=== PATIENT | female | born 1995 | race Caucasian/White ===

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

== ENCOUNTER 2017-02-03 20:40 | Emergency (ER) | payer BC ==
[2017-02-03] MEDS ORDERED: Azithromycin 250 MG Tab PO ONE (22:55)
--- NOTE | 2017-02-03 22:59 | EDM.PDOC ---
ED HPI GENERAL MEDICAL PROBLEM - General Chief Complaint: General Stated Complaint: NECK IS SWOLLEN, [id number] Time Seen by Provider: 02/03/17 22:54 Source of Information: Reports: Patient, Family History Limitations: Reports: No Limitations - History of Present Illness INITIAL COMMENTS - FREE TEXT/NARRATIVE: felt sick Tuesday, to clinic Tuesday told was viral but to ER if worse, got worse tonight with fever right jaw swollen hurts to swallow. Treatments PATENTS EXAMINER: Reports: NSAIDS - Related Data Allergies Allergy/AdvReac Type Severity Reaction Status Date / Time Sulfa (Sulfonamide Allergy Rash Verified 02/03/17 20:56 Antibiotics) Home Meds: Home Meds Dextroamphetamine/Amphetamine [Adderall] 12.5 mg PO DAILY 12/25/15 [History] Sertraline HCl [Zoloft] 20 mg PO DAILY 12/25/15 [History] guanFACINE HCl [Guanfacine HCl] 2 mg PO DAILY 12/25/15 [History] Desogestrel-Ethinyl Estradiol [[place] 28 Day Tablet] 1 each PO DAILY [History] Ciprofloxacin HCl [Cipro] 500 mg PO BID 03/23/16 [History] Past Medical History - Past Health History Medical/Surgical History: Denies Medical/Surgical History Gastrointestinal History: Reports: Chronic Constipation Genitourinary History: Reports: UTI, Recurrent Other Genitourinary History: renal reflux Musculoskeletal History: Reports: Back Pain, Chronic Psychiatric History: Reports: ADHD, Anxiety, Depression Social & Family History - Family History Family Medical History: Noncontributory - Tobacco Use Smoking Status *Q: Never Smoker Second Hand Smoke Exposure: No - Caffeine Use Caffeine Use: Reports: None - Alcohol Use Days Per Week of Alcohol Use: 0 - Recreational Drug Use Recreational Drug Use: No ED ROS GENERAL - Review of Systems Review Of Systems: ROS reveals no pertinent complaints other than HPI. ED EXAM, GENERAL - Physical Exam Exam: See Below Exam Limited By: No Limitations General Appearance: Alert, WD/WN, Mild Distress, Other (discomfort) Ears: Hearing Grossly Normal Throat/Mouth: Normal Voice, No Airway Compromise, Other (tonsillar erythema right>, ) Head: Atraumatic Neck: Non-Tender, Full Range of Motion, Lymphadenopathy (L), Lymphadenopathy (R) , Other (right mandibular angle swollen, parotitis) Respiratory/Chest: No Respiratory Distress Cardiovascular: Regular Rate, Rhythm GI/Abdominal: Soft, Non-Tender Neurological: Alert, Oriented, Normal Cognition, Normal Gait, No Motor/Sensory Deficits Psychiatric: Flat Affect Skin Exam: Warm, Dry, Normal Color Lymphatic: Other (cervical) Course - Vital Signs Last Recorded V/S: Last Vital Signs Temp 36.7 C 02/03/17 20:46 Pulse 114 H 02/03/17 20:46 Resp 16 02/03/17 20:46 BP 122/68 02/03/17 20:46 Pulse Ox 100 02/03/17 20:46 - Orders/Labs/Meds Orders: Active Orders 24 hr Category Date Time Status CULTURE STREP A CONFIRMATION [RM] Stat Lab 02/03/17 20:54 Results MUMPS VIRUS AB, IGG [REF] Stat Lab 02/03/17 22:47 Ordered MUMPS VIRUS AB,IGM [REF] Stat Lab 02/03/17 22:47 Ordered STREP SCRN A RAPID W CULT CONF [RM] Stat Lab 02/03/17 20:54 Results Departure - Departure Time of Disposition: 22:58 Disposition: Home, Self-Care 01 Condition: Good Clinical Impression: Tonsillitis Mumps Qualifiers: Mumps complication type: without complication Qualified Code(s): B26.9 - Mumps without complication - Discharge Information Instructions: Mumps, Pediatric Additional Instructions: 1) avoid solid foods and scratchy foods 2) take tylenol or motrin for fever 3) follow up at clinic or recheck as needed rx given; [id number] - My Orders Last 24 Hours: My Active Orders 02/03/17 20:54 CULTURE STREP A CONFIRMATION [RM] Stat STREP SCRN A RAPID W CULT CONF [RM] Stat 02/03/17 22:47 MUMPS VIRUS AB, IGG [REF] Stat MUMPS VIRUS AB,IGM [REF] Stat - Assessment/Plan Last 24 Hours: My Active Orders 02/03/17 20:54 CULTURE STREP A CONFIRMATION [RM] Stat STREP SCRN A RAPID W CULT CONF [RM] Stat 02/03/17 22:47 MUMPS VIRUS AB, IGG [REF] Stat MUMPS VIRUS AB,IGM [REF] Stat
[2017-02-03 23:12] VITALS: BP 120/67
== END 2017-02-03 23:08 | disposition home or self-care (01) ==
LOC: DL.ED 20:40
DX: J03.90 Acute tonsillitis, unspecified (principal); B26.9 Mumps without complication; F41.9 Anxiety disorder, unspecified; F32.9 Major depressive disorder, single episode, unspecified; Z87.440 Personal history of urinary (tract) infections; Z79.899 Other long term (current) drug therapy; Z88.2 Allergy status to sulfonamides
CPT/HCPCS: 86735; 87081; 87430; 99283; A9270; 36415

== ENCOUNTER 2017-05-05 17:27 | Emergency (ER) | payer BC ==
[2017-05-05 17:41] VITALS: BP 116/71
[2017-05-05] MEDS ORDERED: Sodium Chloride 0.9% 1,000 ML IV ONE (17:45)
--- NOTE | 2017-05-05 17:52 | EDM.PDOC ---
ED HPI GENERAL MEDICAL PROBLEM - General Chief Complaint: Genitourinary Problem Stated Complaint: [id number] KIDNEY INFECTION Time Seen by Provider: 05/05/17 17:44 Source of Information: Reports: Patient History Limitations: Reports: No Limitations - History of Present Illness INITIAL COMMENTS - FREE TEXT/NARRATIVE: 21 yo white female brought in by Mom w/ c/o abdomen pain yesterday, low back pain w/ chills today. PMHx. Recurrent UTIs and Hx. Vesicoureteral reflux and has been evaluated by Urology in [facility]. Pt. denies fever. Onset Date: 05/04/17 Duration: Day(s):, Getting Worse Location: Reports: Abdomen, Back Quality: Reports: Ache Severity: Moderate Improves with: Reports: None Worsens with: Reports: None Context: Reports: Other (PMHx. Vesicoureteral Reflux) Associated Symptoms: Reports: No Other Symptoms Bilateral Flank Pain Score (Numeric/FACES): 7 - Related Data Allergies Allergy/AdvReac Type Severity Reaction Status Date / Time Sulfa (Sulfonamide Allergy Rash Verified 05/05/17 17:35 Antibiotics) Home Meds: Home Meds medroxyPROGESTERone Acetate [Depo-Provera] 150 mg IM ASDIRECTED 05/05/17 [ History] Past Medical History - Past Health History Medical/Surgical History: Denies Medical/Surgical History Gastrointestinal History: Reports: Chronic Constipation Genitourinary History: Reports: Pyelonephritis, UTI, Recurrent Other Genitourinary History: renal reflux Musculoskeletal History: Reports: Back Pain, Chronic Psychiatric History: Reports: ADHD, Anxiety, Depression - Infectious Disease History Infectious Disease History: Reports: None Social & Family History - Family History Family Medical History: Noncontributory - Tobacco Use Smoking Status *Q: Never Smoker Second Hand Smoke Exposure: No - Caffeine Use Caffeine Use: Reports: None - Alcohol Use Days Per Week of Alcohol Use: 0 - Recreational Drug Use Recreational Drug Use: No ED ROS GENERAL - Review of Systems Review Of Systems: See Below Constitutional: Reports: Chills HEENT: Reports: No Symptoms Respiratory: Reports: No Symptoms Cardiovascular: Reports: No Symptoms Endocrine: Reports: No Symptoms GI/Abdominal: Reports: Abdominal Pain (low abdomen) : Reports: Flank Pain (right more than left) Musculoskeletal: Reports: No Symptoms Skin: Reports: No Symptoms Neurological: Reports: No Symptoms Psychiatric: Reports: No Symptoms Hematologic/Lymphatic: Reports: No Symptoms Immunologic: Reports: No Symptoms ED EXAM, RENAL/ - Physical Exam Exam: See Below Exam Limited By: No Limitations General Appearance: Alert, WD/WN, No Apparent Distress Eye Exam: Bilateral Eye: EOMI, PERRL Ears: Normal External Exam Nose: Normal Inspection Throat/Mouth: Normal Inspection Head: Atraumatic Neck: Normal Inspection Respiratory/Chest: No Respiratory Distress Cardiovascular: Normal Peripheral Pulses, Regular Rate, Rhythm GI/Abdominal: Normal Bowel Sounds, Soft, Tender (suprapubic area) Back Exam: Normal Inspection, CVA Tenderness (R) Extremities: Normal Inspection, Normal Range of Motion Neurological: Alert, Oriented, CN II-XII Intact, Normal Cognition Psychiatric: Normal Affect, Normal Mood Skin Exam: Warm, Dry, Intact, Normal Color, No Rash Lymphatic: No Adenopathy Course - Vital Signs Last Recorded V/S: Last Vital Signs Temp 36.7 C 05/05/17 17:38 Pulse 142 H 05/05/17 17:38 Resp 16 05/05/17 17:38 BP 116/71 05/05/17 17:38 Pulse Ox 97 05/05/17 17:38 - Orders/Labs/Meds Orders: Active Orders 24 hr Category Date Time Status CULTURE URINE [RM] Stat Lab 05/05/17 17:33 Received Phenazopyridine [Urinary Pain Relief] Med 05/05/17 18:25 Once 95 mg PO ONETIME ONE Sodium Chloride 0.9% [Normal Saline] 1,000 ml Med 05/05/17 17:45 Active IV .BOLUS cefTRIAXone [Rocephin] 1 gm Med 05/05/17 18:12 Active Sodium Chloride 0.9% [Normal Saline] 50 ml IV ONETIME Medication Orders Sodium Chloride (Normal Saline) 1,000 mls @ 999 mls/hr IV .BOLUS ONE Stop: 05/05/17 18:45 Last Admin: 05/05/17 18:04 Dose: 999 mls/hr Ceftriaxone Sodium 1 gm/ (Sodium Chloride) 50 mls @ 100 mls/hr IV ONETIME ONE Stop: 05/05/17 18:41 Last Admin: 05/05/17 18:24 Dose: 100 mls/hr Phenazopyridine HCl (Urinary Pain Relief) 95 mg PO ONETIME ONE Stop: 05/05/17 18:26 Labs: Laboratory Tests 05/05/17 05/05/17 05/05/17 Range/Units 17:33 17:33 17:57 WBC 8.3 (5.0-10.0) 10^3/uL RBC 4.47 (4.2-5.4) 10^6/uL Hgb 13.4 (12.0-16.0) g/dL Hct 39.2 (37.0-47.0) % MCV 87.7 (80-100) fL MCH 30.0 (27.0-34.0) pg MCHC 34.2 (33.0-35.0) g/dL Plt Count 234 (150-450) 10^3/uL Neut % (Auto) 83.0 H (42.2-75.2) % Lymph % (Auto) 10.0 L (20.5-50.1) % [place] % (Auto) 6.7 (2-8) % Eos % (Auto) 0.2 L (1.0-3.0) % Baso % (Auto) 0.1 (0.0-1.0) % Sodium (135-145) mmol/L Potassium (3.6-5.0) mmol/L Chloride (101-111) mmol/L Carbon Dioxide (21.0-31.0) mmol/L Anion Gap BUN (7-18) mg/dL Creatinine (0.6-1.3) mg/dL Est Cr Clr Drug Dosing mL/min Estimated GFR (MDRD) BUN/Creatinine Ratio Glucose (74-105) mg/dL Calcium (8.4-10.2) mg/dl Total Bilirubin (0.2-1.0) mg/dL AST (10-42) IU/L ALT (10-60) IU/L Alkaline Phosphatase (42-121) IU/L Total Protein (6.7-8.2) g/dl Albumin (3.2-5.5) g/dl Globulin Albumin/Globulin Ratio Amylase (28-100) U/L Urine Color Yellow (YELLOW) Urine Appearance Slightly cloudy (CLEAR) Urine pH 6.0 (5.0-9.0) Ur Specific [place] 1.025 (1.005-1.030) Urine Protein 100 H (NEGATIVE) Urine Glucose (UA) Negative (NEGATIVE) Urine Ketones Trace H (NEGATIVE) Urine Occult Blood Trace-lysed H (NEGATIVE) Urine Nitrite Negative (NEGATIVE) Urine Bilirubin Small H (NEGATIVE) Urine Urobilinogen 0.2 (0.2-1.0) mg/dL Ur Leukocyte Esterase Small H (NEGATIVE) Urine RBC 5-10 H /HPF Urine WBC 50-75 H (0-5/HPF) /HPF Ur Epithelial Cells Many H /HPF Amorphous Sediment Few (0/HPF) /HPF Urine Bacteria Many H (0-FEW/HPF) /HPF Urine Mucus Few H /LPF Urine HCG, Qual Negative 05/05/17 05/05/17 Range/Units 17:57 17:57 WBC (5.0-10.0) 10^3/uL RBC (4.2-5.4) 10^6/uL Hgb (12.0-16.0) g/dL Hct (37.0-47.0) % MCV (80-100) fL MCH (27.0-34.0) pg MCHC (33.0-35.0) g/dL Plt Count (150-450) 10^3/uL Neut % (Auto) (42.2-75.2) % Lymph % (Auto) (20.5-50.1) % [place] % (Auto) (2-8) % Eos % (Auto) (1.0-3.0) % Baso % (Auto) (0.0-1.0) % Sodium 136 (135-145) mmol/L Potassium 3.8 (3.6-5.0) mmol/L Chloride 101 (101-111) mmol/L Carbon Dioxide 22.0 (21.0-31.0) mmol/L Anion Gap 16.8 BUN 19 H (7-18) mg/dL Creatinine 0.9 (0.6-1.3) mg/dL Est Cr Clr Drug Dosing 97.77 mL/min Estimated GFR (MDRD) > 60 BUN/Creatinine Ratio 21.11 Glucose 113 H (74-105) mg/dL Calcium 9.7 (8.4-10.2) mg/dl Total Bilirubin 1.1 H (0.2-1.0) mg/dL AST 36 (10-42) IU/L ALT 48 (10-60) IU/L Alkaline Phosphatase 81 (42-121) IU/L Total Protein 7.6 (6.7-8.2) g/dl Albumin 4.4 (3.2-5.5) g/dl Globulin 3.2 Albumin/Globulin Ratio 1.38 Amylase 46 (28-100) U/L Urine Color (YELLOW) Urine Appearance (CLEAR) Urine pH (5.0-9.0) Ur Specific [place] (1.005-1.030) Urine Protein (NEGATIVE) Urine Glucose (UA) (NEGATIVE) Urine Ketones (NEGATIVE) Urine Occult Blood (NEGATIVE) Urine Nitrite (NEGATIVE) Urine Bilirubin (NEGATIVE) Urine Urobilinogen (0.2-1.0) mg/dL Ur Leukocyte Esterase (NEGATIVE) Urine RBC /HPF Urine WBC (0-5/HPF) /HPF Ur Epithelial Cells /HPF Amorphous Sediment (0/HPF) /HPF Urine Bacteria (0-FEW/HPF) /HPF Urine Mucus /LPF Urine HCG, Qual Meds: Medications Generic Name Dose Route Start Last Admin Trade Name Freq PRN Reason Stop Dose Admin Sodium Chloride 1,000 mls @ 999 mls/hr 05/05/17 17:45 05/05/17 18:04 Normal Saline IV 05/05/17 18:45 999 mls/hr .BOLUS ONE Administration Ceftriaxone Sodium 1 gm/ 50 mls @ 100 mls/hr 05/05/17 18:12 05/05/17 18:24 Sodium Chloride IV 05/05/17 18:41 100 mls/hr ONETIME ONE Administration Phenazopyridine HCl 95 mg 05/05/17 18:25 Urinary Pain Relief PO 05/05/17 18:26 ONETIME ONE Departure - Departure Time of Disposition: 18:29 Disposition: Home, Self-Care 01 Condition: Good Clinical Impression: UTI, Urinary tract infectious disease - Discharge Information Instructions: Urinary Tract Infection, Adult, [id number] Forms: ED Department Discharge Additional Instructions: Rest Increase intake of Water and Cranberry Juice Take the oral antibiotic as prescribed and complete: MACROBID 100mg BID # 30 For the pain ( low abdomen and sides) take the PYRIDIUM 100mg TID # 9 ALSO you can take TYLENOL ES 500mg QID as needed F/U w/ PCP for re-check in 5 days - My Orders Last 24 Hours: My Active Orders 05/05/17 17:33 CULTURE URINE [RM] Stat 05/05/17 17:45 Sodium Chloride 0.9% [Normal Saline] 1,000 ml IV .BOLUS 05/05/17 18:12 cefTRIAXone [Rocephin] 1 gm Sodium Chloride 0.9% [Normal Saline] 50 ml IV ONETIME 05/05/17 18:25 Phenazopyridine [Urinary Pain Relief] 95 mg PO ONETIME ONE - Assessment/Plan Last 24 Hours: My Active Orders 05/05/17 17:33 CULTURE URINE [RM] Stat 05/05/17 17:45 Sodium Chloride 0.9% [Normal Saline] 1,000 ml IV .BOLUS 05/05/17 18:12 cefTRIAXone [Rocephin] 1 gm Sodium Chloride 0.9% [Normal Saline] 50 ml IV ONETIME 05/05/17 18:25 Phenazopyridine [Urinary Pain Relief] 95 mg PO ONETIME ONE
[2017-05-05] MEDS ORDERED: cefTRIAXone 1 GM in Sodium Chloride 0.9% 50 ML IV ONE (18:12)
[2017-05-05 18:25] LABS: CHLORIDE,CL 101 mmol/L (101-111); SODIUM,NA 136 mmol/L (135-145)
[2017-05-05] MEDS ORDERED: Phenazopyridine 95 MG Tab PO ONE (18:25)
== END 2017-05-05 19:31 | disposition home or self-care (01) ==
LOC: DL.ED 17:27
DX: N39.0 Urinary tract infection, site not specified (principal); Z88.2 Allergy status to sulfonamides
CPT/HCPCS: 36415; 80053; 81001; 81025; 82150; 85025; 87086; 96360; 99283; A9270; J0696; J7030; J7050; 87088; 87186

== ENCOUNTER 2017-08-02 18:55 | Emergency (ER) | payer BC ==
[2017-08-02 19:21] VITALS: BP 136/78
--- NOTE | 2017-08-03 00:20 | EDM.PDOC ---
ED HPI GENERAL MEDICAL PROBLEM - General Chief Complaint: ENT Problem Stated Complaint: FEVER,STREP EXPOSURE [id number] Time Seen by Provider: 08/03/17 00:19 Source of Information: Reports: Patient History Limitations: Reports: No Limitations - History of Present Illness INITIAL COMMENTS - FREE TEXT/NARRATIVE: sore throat and cough for one day. States around people that had sore throat. dry cough since yesterday, low grade fever, slight nausea tonight - Related Data Allergies Allergy/AdvReac Type Severity Reaction Status Date / Time Sulfa (Sulfonamide Allergy Rash Verified 08/02/17 19:09 Antibiotics) Home Meds: Home Meds medroxyPROGESTERone Acetate [Depo-Provera] 150 mg IM .[id number] 05/05/17 [History ] Dextroamphetamine/Amphetamine [Adderall] 30 mg PO DAILY 08/02/17 [History] Sertraline HCl [Zoloft] 100 mg PO DAILY 08/02/17 [History] Past Medical History - Past Health History Medical/Surgical History: Denies Medical/Surgical History Gastrointestinal History: Reports: Chronic Constipation Genitourinary History: Reports: Pyelonephritis, UTI, Recurrent Other Genitourinary History: renal reflux Musculoskeletal History: Reports: Back Pain, Chronic Psychiatric History: Reports: ADHD, Anxiety, Depression - Infectious Disease History Infectious Disease History: Reports: None Social & Family History - Family History Family Medical History: Noncontributory - Tobacco Use Smoking Status *Q: Never Smoker Second Hand Smoke Exposure: No - Caffeine Use Caffeine Use: Reports: Soda - Alcohol Use Days Per Week of Alcohol Use: 0 - Recreational Drug Use Recreational Drug Use: No ED ROS ENT - Review of Systems Review Of Systems: See Below Constitutional: Reports: Fever, Malaise HEENT: Reports: No Symptoms Cardiovascular: Reports: No Symptoms Endocrine: Reports: No Symptoms GI/Abdominal: Reports: Nausea : Reports: No Symptoms Musculoskeletal: Reports: No Symptoms Skin: Reports: No Symptoms Neurological: Reports: No Symptoms ED EXAM, ENT - Physical Exam Exam: See Below Exam Limited By: No Limitations General Appearance: Alert Eye Exam: Bilateral Eye: EOMI Ears: Normal External Exam, Normal TMs Nose: Normal Inspection, Normal Mucousa Mouth/Throat: Normal Inspection, Normal Gums, Normal Lips. No: Tonsillar Swelling Head: Atraumatic, Normocephalic Neck: Normal Inspection, Full Range of Motion Respiratory/Chest: No Respiratory Distress, Lungs Clear, Normal Breath Sounds Cardiovascular: Normal Peripheral Pulses, Regular Rate, Rhythm GI/Abdominal: Normal Bowel Sounds, Soft, Non-Tender Extremities: Normal Inspection Neurological: Alert, Oriented, CN II-XII Intact, No Motor/Sensory Deficits Skin: Warm, Dry, Intact Course - Vital Signs Last Recorded V/S: Last Vital Signs Temp 98.1 F 08/02/17 19:17 Pulse 103 H 08/02/17 19:17 Resp 18 08/02/17 19:17 BP 136/78 08/02/17 19:17 Pulse Ox 100 08/02/17 19:17 - Orders/Labs/Meds Orders: Active Orders 24 hr Category Date Time Status CULTURE STREP A CONFIRMATION [RM] Stat Lab 08/02/17 19:12 Results STREP SCRN A RAPID W CULT CONF [] Stat Lab 08/02/17 19:12 Results Departure - Departure Time of Disposition: 00:25 Disposition: Home, Self-Care 01 Condition: Good Clinical Impression: Upper respiratory infection Qualifiers: URI type: unspecified viral URI Qualified Code(s): J06.9 - Acute upper respiratory infection, unspecified - Discharge Information Instructions: Upper Respiratory Infection, Adult, [id number] Referrals: Rocío Chase MD [Primary Care Provider] - Forms: ED Department Discharge Additional Instructions: light diet fluids tylenol or ibuprofen for discomfort/fever Follow up if symptoms worsen, uncontrolled vomiting, fever, humidification - My Orders Last 24 Hours: My Active Orders 08/02/17 19:12 CULTURE STREP A CONFIRMATION [RM] Stat STREP SCRN A RAPID W CULT CONF [RM] Stat - Assessment/Plan Last 24 Hours: My Active Orders 08/02/17 19:12 CULTURE STREP A CONFIRMATION [RM] Stat STREP SCRN A RAPID W CULT CONF [RM] Stat
== END 2017-08-03 00:47 | disposition home or self-care (01) ==
LOC: DL.ED 18:55
DX: J06.9 Acute upper respiratory infection, unspecified (principal); Z88.2 Allergy status to sulfonamides; Z79.899 Other long term (current) drug therapy
CPT/HCPCS: 87081; 87430; 99283

== ENCOUNTER 2017-09-19 23:01 | Emergency (ER) | payer BC ==
[2017-09-19] MEDS ORDERED: Ondansetron 4 MG/2 ML SDV IV ONE (23:16)
[2017-09-19] MEDS ORDERED: Sodium Chloride 0.9% 1,000 ML IV ONE (23:16)
[2017-09-19 23:45] LABS: ANION GAP 12.4; CHLORIDE,CL 103 mmol/L (101-111); SODIUM,NA 135 mmol/L (135-145)
--- NOTE | 2017-09-19 23:54 | EDM.PDOC ---
ED HPI GENERAL MEDICAL PROBLEM - General Chief Complaint: Gastrointestinal Problem Stated Complaint: CANT KEEP ANYTHING DOWN [id number] Time Seen by Provider: 09/19/17 23:50 Source of Information: Reports: Patient History Limitations: Reports: No Limitations - History of Present Illness INITIAL COMMENTS - FREE TEXT/NARRATIVE: started V/D last night not getting better all day not eating so came here. Generalized Pain Score (Numeric/FACES): 6 - Related Data Allergies Allergy/AdvReac Type Severity Reaction Status Date / Time Sulfa (Sulfonamide Allergy Rash Verified 09/19/17 23:05 Antibiotics) Home Meds: Home Meds Dextroamphetamine/Amphetamine [Adderall] 30 mg PO DAILY 08/02/17 [History] Sertraline HCl [Zoloft] 100 mg PO DAILY 08/02/17 [History] Past Medical History - Past Health History Medical/Surgical History: Denies Medical/Surgical History Gastrointestinal History: Reports: Chronic Constipation Genitourinary History: Reports: Pyelonephritis, UTI, Recurrent Other Genitourinary History: renal reflux Musculoskeletal History: Reports: Back Pain, Chronic Psychiatric History: Reports: ADHD, Anxiety, Depression - Infectious Disease History Infectious Disease History: Reports: Influenza Social & Family History - Family History Family Medical History: Noncontributory - Tobacco Use Smoking Status *Q: Never Smoker Second Hand Smoke Exposure: No - Caffeine Use Caffeine Use: Reports: Soda - Alcohol Use Days Per Week of Alcohol Use: 0 - Recreational Drug Use Recreational Drug Use: No ED ROS GENERAL - Review of Systems Review Of Systems: ROS reveals no pertinent complaints other than HPI. ED EXAM, GI/ABD - Physical Exam Exam: See Below Exam Limited By: No Limitations General Appearance: Alert, WD/WN, Mild Distress, Other (discomfort) Ears: Hearing Grossly Normal Throat/Mouth: Normal Voice, No Airway Compromise Head: Atraumatic Neck: Non-Tender, Full Range of Motion Respiratory/Chest: No Respiratory Distress Cardiovascular: Regular Rate, Rhythm GI/Abdominal Exam: Soft, Non-Tender, Other (discomfort, ). No: Distended, Guarding, Rebound, Tender (Female) Exam: Normal External Exam (general discomfort, BS hyper) Neurological: Alert, Oriented, Normal Cognition, Normal Gait, No Motor/Sensory Deficits Psychiatric: Flat Affect Skin Exam: Warm, Dry, Normal Color Lymphatic: No Adenopathy Course - Vital Signs Last Recorded V/S: Last Vital Signs Temp 36.2 C 09/19/17 23:03 Pulse 118 H 09/19/17 23:03 Resp 18 09/19/17 23:03 BP 117/86 09/19/17 23:03 Pulse Ox 97 09/19/17 23:03 - Orders/Labs/Meds Orders: Active Orders 24 hr Category Date Time Status Sodium Chloride 0.9% [Normal Saline] 1,000 ml Med 09/19/17 23:16 Active IV .BOLUS Medication Orders Sodium Chloride (Normal Saline) 1,000 mls @ 999 mls/hr IV .BOLUS ONE Stop: 09/20/17 00:16 Last Admin: 09/19/17 23:18 Dose: 999 mls/hr Labs: Laboratory Tests 09/19/17 09/19/17 09/19/17 Range/Units 23:15 23:15 23:15 WBC 11.5 H (5.0-10.0) 10^3/uL RBC 4.57 (4.2-5.4) 10^6/uL Hgb 13.6 (12.0-16.0) g/dL Hct 40.8 (37.0-47.0) % MCV 89.3 (80-100) fL MCH 29.8 (27.0-34.0) pg MCHC 33.3 (33.0-35.0) g/dL Plt Count 280 (150-450) 10^3/uL Neut % (Auto) 56.7 (42.2-75.2) % Lymph % (Auto) 31.2 (20.5-50.1) % [place] % (Auto) 10.8 H (2-8) % Eos % (Auto) 1.0 (1.0-3.0) % Baso % (Auto) 0.3 (0.0-1.0) % Sodium 135 (135-145) mmol/L Potassium 3.4 L (3.6-5.0) mmol/L Chloride 103 (101-111) mmol/L Carbon Dioxide 23.0 (21.0-31.0) mmol/L Anion Gap 12.4 BUN 16 (7-18) mg/dL Creatinine 0.8 (0.6-1.3) mg/dL Est Cr Clr Drug Dosing 109.08 mL/min Estimated GFR (MDRD) > 60 BUN/Creatinine Ratio 20.00 Glucose 87 (74-105) mg/dL Lactic Acid 0.6 (0.5-2.2) mmol/L Calcium 9.3 (8.4-10.2) mg/dl Total Bilirubin 0.6 (0.2-1.0) mg/dL AST 25 (10-42) IU/L ALT 30 (10-60) IU/L Alkaline Phosphatase 88 (42-121) IU/L Total Protein 7.9 (6.7-8.2) g/dl Albumin 4.5 (3.2-5.5) g/dl Globulin 3.4 Albumin/Globulin Ratio 1.32 HCG, Qual Negative Meds: Medications Generic Name Dose Route Start Last Admin Trade Name Freq PRN Reason Stop Dose Admin Sodium Chloride 1,000 mls @ 999 mls/hr 09/19/17 23:16 09/19/17 23:18 Normal Saline IV 09/20/17 00:16 999 mls/hr .BOLUS ONE Administration Discontinued Medications Generic Name Dose Route Start Last Admin Trade Name Freq PRN Reason Stop Dose Admin Ondansetron HCl 4 mg 09/19/17 23:16 09/19/17 23:20 Zofran IV 09/19/17 23:17 4 mg ONETIME ONE Administration - Re-Assessments/Exams Free Text/Narrative Re-Assessment/Exam: 09/19/17 23:57 results discussed with pt who is feeling much better now and ready to go home. Departure - Departure Time of Disposition: 23:57 Disposition: Home, Self-Care 01 Condition: Good Clinical Impression: Vomiting, Diarrhea, Gastroenteritis - Discharge Information Instructions: Nausea and Vomiting, Adult, [id number] Forms: ED Department Discharge Additional Instructions: 1) avoid solid foods next 48 hours 2) have liquids 3) recheck as needed rx given; zofran 4mg ODT bid prn vomiting x 4 - My Orders Last 24 Hours: My Active Orders 09/19/17 23:16 Sodium Chloride 0.9% [Normal Saline] 1,000 ml IV .BOLUS - Assessment/Plan Last 24 Hours: My Active Orders 09/19/17 23:16 Sodium Chloride 0.9% [Normal Saline] 1,000 ml IV .BOLUS
[2017-09-20 00:06] VITALS: BP 119/74
== END 2017-09-20 00:03 | disposition home or self-care (01) ==
LOC: DL.ED 23:01
DX: K52.9 Noninfective gastroenteritis and colitis, unspecified (principal); Z88.2 Allergy status to sulfonamides; Z79.899 Other long term (current) drug therapy
CPT/HCPCS: 36415; 80053; 83605; 84703; 85025; 96361; 96374; 99283; J2405; J7030

== ENCOUNTER 2017-09-24 02:16 | Emergency (ER) | payer BC ==
--- NOTE | 2017-09-24 02:46 | EDM.PDOC ---
ED HPI GENERAL MEDICAL PROBLEM - General Chief Complaint: General Stated Complaint: PASSED OUT 3 TIMES YESTERDAY [id number] Time Seen by Provider: 09/24/17 02:41 Source of Information: Reports: Patient, Family History Limitations: Reports: No Limitations - History of Present Illness INITIAL COMMENTS - FREE TEXT/NARRATIVE: pt states passed out few times yesterday. mother states while coming to ER pt passed out again denies any seizure like activity but pt did c/o some chest tightness SOB, pt denies SINGH but does have low abd pain with h/o ovarian cyste. was here last week with negative preg - Related Data Allergies Allergy/AdvReac Type Severity Reaction Status Date / Time Sulfa (Sulfonamide Allergy Rash Verified 09/24/17 02:31 Antibiotics) Home Meds: Home Meds Dextroamphetamine/Amphetamine [Adderall] 30 mg PO DAILY 08/02/17 [History] Sertraline HCl [Zoloft] 100 mg PO DAILY 08/02/17 [History] Past Medical History - Past Health History Medical/Surgical History: Denies Medical/Surgical History Gastrointestinal History: Reports: Chronic Constipation Genitourinary History: Reports: Pyelonephritis, UTI, Recurrent Other Genitourinary History: renal reflux Musculoskeletal History: Reports: Back Pain, Chronic Psychiatric History: Reports: ADHD, Anxiety, Depression - Infectious Disease History Infectious Disease History: Reports: Influenza Social & Family History - Family History Family Medical History: Noncontributory - Tobacco Use Smoking Status *Q: Never Smoker Second Hand Smoke Exposure: No - Caffeine Use Caffeine Use: Reports: Coffee, Soda - Alcohol Use Days Per Week of Alcohol Use: 0 - Recreational Drug Use Recreational Drug Use: No ED ROS GENERAL - Review of Systems Review Of Systems: ROS reveals no pertinent complaints other than HPI. ED EXAM, GENERAL - Physical Exam Exam: See Below Exam Limited By: No Limitations General Appearance: Alert, WD/WN, Mild Distress, Other (upset) Eye Exam: Bilateral Eye: PERRL (pupils ER @ 4mm) Ears: Hearing Grossly Normal Throat/Mouth: Normal Voice, No Airway Compromise Head: Atraumatic Neck: Non-Tender, Full Range of Motion Respiratory/Chest: No Respiratory Distress Cardiovascular: Regular Rate, Rhythm GI/Abdominal: Soft, Tender, Other (suprapubic discomfort). No: Distended, Guarding, Rigid, Rebound Neurological: Alert, Oriented, Normal Cognition, Normal Gait, No Motor/Sensory Deficits Psychiatric: Flat Affect Skin Exam: Warm, Dry, Normal Color Lymphatic: No Adenopathy Course - Vital Signs Last Recorded V/S: Last Vital Signs Temp 36.4 C 09/24/17 02:23 Pulse 104 H 09/24/17 02:23 Resp 18 09/24/17 02:23 BP 121/67 09/24/17 02:23 Pulse Ox 100 09/24/17 02:23 - Orders/Labs/Meds Orders: Active Orders 24 hr Category Date Time Status Head wo Cont [CT] Urgent Exams 09/24/17 04:02 Taken traMADol [Ultram] Med 09/24/17 05:11 Once 50 mg PO ONETIME ONE Labs: Laboratory Tests 09/24/17 09/24/17 09/24/17 Range/Units 02:40 02:40 02:40 WBC (5.0-10.0) 10^3/uL RBC (4.2-5.4) 10^6/uL Hgb (12.0-16.0) g/dL Hct (37.0-47.0) % MCV (80-100) fL MCH (27.0-34.0) pg MCHC (33.0-35.0) g/dL Plt Count (150-450) 10^3/uL Neut % (Auto) (42.2-75.2) % Lymph % (Auto) (20.5-50.1) % [place] % (Auto) (2-8) % Eos % (Auto) (1.0-3.0) % Baso % (Auto) (0.0-1.0) % D-Dimer, Quantitative (0-400) ng/mL Sodium (135-145) mmol/L Potassium (3.6-5.0) mmol/L Chloride (101-111) mmol/L Carbon Dioxide (21.0-31.0) mmol/L Anion Gap BUN (7-18) mg/dL Creatinine (0.6-1.3) mg/dL Est Cr Clr Drug Dosing mL/min Estimated GFR (MDRD) BUN/Creatinine Ratio Glucose (74-105) mg/dL Calcium (8.4-10.2) mg/dl Total Bilirubin (0.2-1.0) mg/dL AST (10-42) IU/L ALT (10-60) IU/L Alkaline Phosphatase (42-121) IU/L Total Protein (6.7-8.2) g/dl Albumin (3.2-5.5) g/dl Globulin Albumin/Globulin Ratio Urine Color Yellow (YELLOW) Urine Appearance Slightly cloudy (CLEAR) Urine pH 5.5 (5.0-9.0) Ur Specific [place] >= 1.030 (1.005-1.030) Urine Protein Negative (NEGATIVE) Urine Glucose (UA) Negative (NEGATIVE) Urine Ketones Trace H (NEGATIVE) Urine Occult Blood Negative (NEGATIVE) Urine Nitrite Negative (NEGATIVE) Urine Bilirubin Negative (NEGATIVE) Urine Urobilinogen 0.2 (0.2-1.0) mg/dL Ur Leukocyte Esterase Small H (NEGATIVE) Urine RBC 0-5 /HPF Urine WBC 20-30 H (0-5/HPF) /HPF Ur Epithelial Cells Moderate H /HPF Urine Bacteria Moderate H (0-FEW/HPF) /HPF Urine Mucus Moderate H /LPF Urine HCG, Qual Negative Urine Opiates Screen Negative (NEGATIVE) Ur Oxycodone Screen Negative (NEGATIVE) Urine Methadone Screen Negative (NEGATIVE) Ur Barbiturates Screen Negative (NEGATIVE) U Tricyclic Antidepress Negative (NEGATIVE) Ur Phencyclidine Scrn Negative (NEGATIVE) Ur Amphetamine Screen Positive H (NEGATIVE) U Methamphetamines Scrn Negative (NEGATIVE) Urine MDMA Screen Negative (NEGATIVE) U Benzodiazepines Scrn Negative (NEGATIVE) Urine Cocaine Screen Negative (NEGATIVE) U Marijuana (THC) Screen Negative (NEGATIVE) 09/24/17 09/24/17 09/24/17 Range/Units 02:50 02:50 02:50 WBC 10.8 H (5.0-10.0) 10^3/uL RBC 4.42 (4.2-5.4) 10^6/uL Hgb 13.3 (12.0-16.0) g/dL Hct 39.6 (37.0-47.0) % MCV 89.6 (80-100) fL MCH 30.1 (27.0-34.0) pg MCHC 33.6 (33.0-35.0) g/dL Plt Count 222 (150-450) 10^3/uL Neut % (Auto) 57.9 (42.2-75.2) % Lymph % (Auto) 30.7 (20.5-50.1) % [place] % (Auto) 10.2 H (2-8) % Eos % (Auto) 0.9 L (1.0-3.0) % Baso % (Auto) 0.3 (0.0-1.0) % D-Dimer, Quantitative < 100 (0-400) ng/mL Sodium 136 (135-145) mmol/L Potassium 4.0 (3.6-5.0) mmol/L Chloride 105 (101-111) mmol/L Carbon Dioxide 24.0 (21.0-31.0) mmol/L Anion Gap 11.0 BUN 25 H (7-18) mg/dL Creatinine 0.9 (0.6-1.3) mg/dL Est Cr Clr Drug Dosing 89.72 mL/min Estimated GFR (MDRD) > 60 BUN/Creatinine Ratio 27.77 Glucose 92 (74-105) mg/dL Calcium 9.3 (8.4-10.2) mg/dl Total Bilirubin 0.5 (0.2-1.0) mg/dL AST 25 (10-42) IU/L ALT 27 (10-60) IU/L Alkaline Phosphatase 90 (42-121) IU/L Total Protein 7.4 (6.7-8.2) g/dl Albumin 4.3 (3.2-5.5) g/dl Globulin 3.1 Albumin/Globulin Ratio 1.39 Urine Color (YELLOW) Urine Appearance (CLEAR) Urine pH (5.0-9.0) Ur Specific [place] (1.005-1.030) Urine Protein (NEGATIVE) Urine Glucose (UA) (NEGATIVE) Urine Ketones (NEGATIVE) Urine Occult Blood (NEGATIVE) Urine Nitrite (NEGATIVE) Urine Bilirubin (NEGATIVE) Urine Urobilinogen (0.2-1.0) mg/dL Ur Leukocyte Esterase (NEGATIVE) Urine RBC /HPF Urine WBC (0-5/HPF) /HPF Ur Epithelial Cells /HPF Urine Bacteria (0-FEW/HPF) /HPF Urine Mucus /LPF Urine HCG, Qual Urine Opiates Screen (NEGATIVE) Ur Oxycodone Screen (NEGATIVE) Urine Methadone Screen (NEGATIVE) Ur Barbiturates Screen (NEGATIVE) U Tricyclic Antidepress (NEGATIVE) Ur Phencyclidine Scrn (NEGATIVE) Ur Amphetamine Screen (NEGATIVE) U Methamphetamines Scrn (NEGATIVE) Urine MDMA Screen (NEGATIVE) U Benzodiazepines Scrn (NEGATIVE) Urine Cocaine Screen (NEGATIVE) U Marijuana (THC) Screen (NEGATIVE) - Re-Assessments/Exams Free Text/Narrative Re-Assessment/Exam: 09/24/17 05:12 results discussed with pt & mother. Departure - Departure Time of Disposition: 05:12 Disposition: Home, Self-Care 01 Condition: Good Clinical Impression: Syncopal episodes Qualifiers: Syncope type: unspecified Qualified Code(s): R55 - Syncope and collapse Ovarian cyst Qualifiers: Laterality: unspecified laterality Qualified Code(s): N83.209 - Unspecified ovarian cyst, unspecified side - Discharge Information Instructions: Near-Syncope, [id number] Forms: ED Department Discharge Additional Instructions: 1) rest 2) follow up with family doctor 3) recheck if there is any change or concern - My Orders Last 24 Hours: My Active Orders 09/24/17 04:02 Head wo Cont [CT] Urgent 09/24/17 05:11 traMADol [Ultram] 50 mg PO ONETIME ONE - Assessment/Plan Last 24 Hours: My Active Orders 09/24/17 04:02 Head wo Cont [CT] Urgent 09/24/17 05:11 traMADol [Ultram] 50 mg PO ONETIME ONE
[2017-09-24 03:12] LABS: CHLORIDE,CL 105 mmol/L (101-111); SODIUM,NA 136 mmol/L (135-145)
[2017-09-24] MEDS ORDERED: traMADol 50 MG Tab PO ONE (05:11)
[2017-09-24 05:25] VITALS: BP 115/65
== END 2017-09-24 05:18 | disposition home or self-care (01) ==
LOC: DL.ED 02:16
DX: R55 Syncope and collapse (principal); N83.209 Unspecified ovarian cyst, unspecified side; Z88.2 Allergy status to sulfonamides; Z79.899 Other long term (current) drug therapy
CPT/HCPCS: 36415; 70450; 80053; 80305; 81001; 81025; 85025; 85379; 99284; A9270

== ENCOUNTER 2018-09-25 20:25 | Emergency (ER) | payer BC ==
[2018-09-25 20:31] VITALS: BP 131/75; PULSE 99
--- NOTE | 2018-09-25 21:09 | EDM.PDOC ---
ED HPI GENERAL MEDICAL PROBLEM - General Chief Complaint: Lower Extremity Injury/Pain Stated Complaint: RT ANKLE Time Seen by Provider: 09/25/18 20:30 Source of Information: Reports: Patient, Family History Limitations: Reports: No Limitations - History of Present Illness INITIAL COMMENTS - FREE TEXT/NARRATIVE: c/o pain to right ankle. Reports twisting ankle while playing basketball [employer]. Non weight bearing since. Immediate swelling to outer ankle. Previous sprains to ankle during highschool. - Related Data Allergies Allergy/AdvReac Type Severity Reaction Status Date / Time Sulfa (Sulfonamide Allergy Rash Verified 09/25/18 20:30 Antibiotics) Home Meds: Home Meds Dextroamphetamine/Amphetamine [Adderall] 30 mg PO DAILY 08/02/17 [History] Levonorgestrel-Ethin Estradiol [Falmina-28 Tablet] 1 tab PO DAILY 04/02/18 [ History] Sertraline [Zoloft] 100 mg PO DAILY 04/24/18 [History] Acetaminophen [Tylenol] 650 mg PO Q6H PRN 30 Days #30 tablet 04/25/18 [Rx] Past Medical History - Past Health History Medical/Surgical History: Denies Medical/Surgical History HEENT History: Reports: None Cardiovascular History: Reports: None Respiratory History: Reports: None Gastrointestinal History: Reports: Chronic Constipation Genitourinary History: Reports: Pyelonephritis, UTI, Recurrent Other Genitourinary History: renal reflux Musculoskeletal History: Reports: Back Pain, Chronic Neurological History: Reports: None Psychiatric History: Reports: ADHD, Anxiety, Depression Endocrine/Metabolic History: Reports: None Hematologic History: Reports: None Immunologic History: Reports: None Oncologic (Cancer) History: Reports: None Dermatologic History: Reports: None - Infectious Disease History Infectious Disease History: Reports: Influenza Social & Family History - Family History Family Medical History: Noncontributory - Tobacco Use Smoking Status *Q: Never Smoker Second Hand Smoke Exposure: No - Caffeine Use Caffeine Use: Reports: None Review of Systems - Review of Systems Review Of Systems: ROS reveals no pertinent complaints other than HPI. ED EXAM, GENERAL - Physical Exam Exam: See Below Exam Limited By: No Limitations General Appearance: Alert, Mild Distress Eye Exam: Bilateral Eye: EOMI Ears: Normal External Exam, Hearing Grossly Normal Nose: Normal Inspection Throat/Mouth: Normal Voice Head: Atraumatic, Normocephalic Neck: Normal Inspection Respiratory/Chest: No Respiratory Distress, Lungs Clear, Respiratory Distress Extremities: Joint Swelling (right ankle greater lateral with early bruising noted.), Limited Range of Motion Neurological: Alert, Oriented Psychiatric: Normal Affect Skin Exam: Warm, Dry, Intact, Ecchymosis (right ankle). No: Wound/Incision Course - Vital Signs Last Recorded V/S: Last Vital Signs Temp 97.7 F 09/25/18 20:30 Pulse 99 09/25/18 20:30 Resp 16 09/25/18 20:30 BP 131/75 09/25/18 20:30 Pulse Ox 100 09/25/18 20:30 - Radiology Interpretation Free Text/Narrative:: [facility] Final Radiology Report Call: [phone] assistance Online chat: [email or web address] Name: PAULA PETERS Age: 23Years F Date: 09/25/2018 SSN: -- : 1995 Study: XR ANKLE COMPLETE MIN 3 VIEWS RIGHT Requesting Physician: MICHAEL HONEYCUTT Images: 3 Addl Studies: Provided Clinical History: Contrast: Contrast Medium: Contrast Amount: Contrast Method: CONFIDENTIALITY STATEMENT This report is intended only for use by the referring physician, and only in accordance with law. If you received this in error, call [phone]. Page 1 of 1 EXAM: XR Right Ankle Complete, 3 or more Views EXAM DATE/TIME: 09/25/2018 8:33 PM CLINICAL HISTORY: 23 years old, female; Injury or trauma; Injury history: Injured playing ball, pain in ankle; Initial encounter; Sprain or strain; Right TECHNIQUE: Imaging protocol: XR Right ankle 3 or more views. COMPARISON: No relevant prior studies available. FINDINGS: Bones/joints: No acute fracture. There is a well-corticated subcentimeter loose body along medial malleolus Soft tissues: Prominent soft tissue swelling. IMPRESSION: No acute osseous findings. Thank you for allowing us to participate in the care of your patient. Dictated and Authenticated by: Jose Sprague MD 09/25/2018 8:47 PM Central Time ([place] & [place]) Departure - Departure Time of Disposition: 21:07 Disposition: Home, Self-Care 01 Condition: Good Clinical Impression: Right ankle sprain Qualifiers: Encounter type: initial encounter Involved ligament of ankle: unspecified ligament Qualified Code(s): S93.401A - Sprain of unspecified ligament of right ankle, initial encounter - Discharge Information *PRESCRIPTION DRUG MONITORING PROGRAM REVIEWED*: Not Applicable *COPY OF PRESCRIPTION DRUG MONITORING REPORT IN PATIENT ROBERT: Not Applicable Instructions: Ankle Sprain, [id number] Forms: ED Department Discharge Additional Instructions: alternate tylenol 650mg and ibuprofen 600mg every 4 hours as needed for discomfort elevate rest ice cam boot touch toe weight bearing x 48 hours clinic follow up next week
== END 2018-09-25 21:15 | disposition home or self-care (01) ==
LOC: DL.ED 20:25
DX: S93.401A Sprain of unspecified ligament of right ankle, initial encounter (principal); F41.9 Anxiety disorder, unspecified; F32.9 Major depressive disorder, single episode, unspecified; Z79.899 Other long term (current) drug therapy; Z88.2 Allergy status to sulfonamides; X58.XXXA Exposure to other specified factors, initial encounter; Y93.67 Activity, basketball
CPT/HCPCS: 73610-RT; 99283-25

== ENCOUNTER 2019-04-13 21:23 | Emergency (ER) | payer BC ==
[2019-04-13] MEDS ORDERED: Phenazopyridine 95 MG Tab PO ONE (21:24)
[2019-04-13] MEDS ORDERED: Ciprofloxacin 500 MG Tab PO ONE (21:24)
[2019-04-13 21:54] VITALS: BP 127/78; PULSE 128
[2019-04-13] MEDS ORDERED: Ciprofloxacin 500 MG Tab ONE (23:15)
[2019-04-13] MEDS ORDERED: Phenazopyridine 95 MG Tab ONE ×2 (23:15)
--- NOTE | 2019-04-13 23:19 | EDM.PDOC ---
ED HPI GENERAL MEDICAL PROBLEM - General Chief Complaint: Back Pain or Injury Stated Complaint: KIDNEY INFECTION Time Seen by Provider: 04/13/19 21:40 Source of Information: Reports: Patient History Limitations: Reports: No Limitations - History of Present Illness INITIAL COMMENTS - FREE TEXT/NARRATIVE: C/O back pain greater right x 2 days today nausea and vomiting tonight. Hx multiple UTI and kidney infections. Unsure if fever, some chills. Treatments GALLERY OR MUSEUM CURATOR: Reports: Other (see below) Other Treatments GALLERY OR MUSEUM CURATOR: none Bilateral Flank Pain Score (Numeric/FACES): 7 - Related Data Allergies Allergy/AdvReac Type Severity Reaction Status Date / Time Sulfa (Sulfonamide Allergy Rash Verified 04/13/19 21:54 Antibiotics) Home Meds: Home Meds Dextroamphetamine/Amphetamine [Adderall] 30 mg PO DAILY 08/02/17 [History] Levonorgestrel-Ethin Estradiol [Falmina-28 Tablet] 1 tab PO DAILY 04/02/18 [ History] Sertraline [Zoloft] 100 mg PO DAILY 04/24/18 [History] Acetaminophen [Tylenol] 650 mg PO Q6H PRN 30 Days #30 tablet 04/25/18 [Rx] Past Medical History - Past Health History Medical/Surgical History: Denies Medical/Surgical History HEENT History: Reports: None Cardiovascular History: Reports: None Respiratory History: Reports: None Gastrointestinal History: Reports: Chronic Constipation Genitourinary History: Reports: Pyelonephritis, UTI, Recurrent Other Genitourinary History: renal reflux Musculoskeletal History: Reports: Back Pain, Chronic Neurological History: Reports: None Psychiatric History: Reports: ADHD, Anxiety, Depression Endocrine/Metabolic History: Reports: None Hematologic History: Reports: None Immunologic History: Reports: None Oncologic (Cancer) History: Reports: None Dermatologic History: Reports: None - Infectious Disease History Infectious Disease History: Reports: Influenza Social & Family History - Family History Family Medical History: Noncontributory - Tobacco Use Smoking Status *Q: Unknown Ever Smoked Second Hand Smoke Exposure: Yes - Caffeine Use Caffeine Use: Reports: Soda - Recreational Drug Use Recreational Drug Use: No ED ROS GENERAL - Review of Systems Review Of Systems: ROS reveals no pertinent complaints other than HPI. ED EXAM,LOWER BACK PAIN/INJURY - Physical Exam Exam: See Below Exam Limited By: No Limitations General Appearance: Alert, Mild Distress Eye Exam: Bilateral Eye: EOMI Ears: Normal External Exam, Hearing Grossly Normal Nose: Normal Inspection Throat/Mouth: Normal Inspection Head: Atraumatic, Normocephalic Neck: Normal Inspection, Full Range of Motion Respiratory/Chest: No Respiratory Distress, Lungs Clear, Normal Breath Sounds Cardiovascular: Normal Peripheral Pulses, Regular Rate, Rhythm, Tachycardia GI/Abdominal: Normal Bowel Sounds, Soft Back Exam: Full Range of Motion, CVA Tenderness (L), CVA Tenderness (R) Extremities: Normal Inspection, No Pedal Edema Neurological: Alert, Normal Mood/Affect, Oriented x 3 Psychiatric: Normal Affect, Normal Mood Skin Exam: Warm, Dry, Intact, Normal Color Course - Vital Signs Last Recorded V/S: Last Vital Signs Temp 98.3 F 04/13/19 21:35 Pulse 128 H 04/13/19 21:35 Resp 16 04/13/19 21:35 BP 127/78 04/13/19 21:35 Pulse Ox 99 04/13/19 21:35 - Orders/Labs/Meds Labs: Laboratory Tests 04/13/19 04/13/19 04/13/19 Range/Units 21:43 21:43 23:37 WBC 11.0 H (5.0-10.0) 10^3/uL RBC 4.51 (4.2-5.4) 10^6/uL Hgb 13.8 (12.0-16.0) g/dL Hct 41.1 (37.0-47.0) % MCV 91.1 D (80-100) fL MCH 30.6 (27.0-34.0) pg MCHC 33.6 (33.0-35.0) g/dL Plt Count 337 (150-450) 10^3/uL Neut % (Auto) 54.7 (42.2-75.2) % Lymph % (Auto) 31.7 (20.5-50.1) % [place] % (Auto) 12.5 H (2-8) % Eos % (Auto) 0.9 L (1.0-3.0) % Baso % (Auto) 0.2 (0.0-1.0) % Sodium (135-145) mmol/L Potassium (3.6-5.0) mmol/L Chloride (101-111) mmol/L Carbon Dioxide (21.0-31.0) mmol/L Anion Gap BUN (7-18) mg/dL Creatinine (0.6-1.3) mg/dL Est Cr Clr Drug Dosing mL/min Estimated GFR (MDRD) BUN/Creatinine Ratio Glucose (74-105) mg/dL Calcium (8.4-10.2) mg/dl Total Bilirubin (0.2-1.0) mg/dL AST (10-42) IU/L ALT (10-60) IU/L Alkaline Phosphatase (42-121) IU/L Total Protein (6.7-8.2) g/dl Albumin (3.2-5.5) g/dl Globulin Albumin/Globulin Ratio Urine Color Yellow (YELLOW) Urine Appearance Cloudy (CLEAR) Urine pH 7.5 (5.0-9.0) Ur Specific [place] 1.020 (1.005-1.030) Urine Protein Negative (NEGATIVE) Urine Glucose (UA) Negative (NEGATIVE) Urine Ketones Negative (NEGATIVE) Urine Occult Blood Negative (NEGATIVE) Urine Nitrite Negative (NEGATIVE) Urine Bilirubin Negative (NEGATIVE) Urine Urobilinogen 0.2 (0.2-1.0) mg/dL Ur Leukocyte Esterase Small H (NEGATIVE) Urine RBC 0-5 /HPF Urine WBC 20-30 H (0-5/HPF) /HPF Ur Epithelial Cells Moderate H (NOT SEEN) /HPF Amorphous Sediment Rare (NOT SEEN) /HPF Urine Bacteria Many H (0-FEW/HPF) /HPF Urine Mucus Few H (NOT SEEN) /LPF Urine HCG, Qual Negative 04/13/19 Range/Units 23:37 WBC (5.0-10.0) 10^3/uL RBC (4.2-5.4) 10^6/uL Hgb (12.0-16.0) g/dL Hct (37.0-47.0) % MCV (80-100) fL MCH (27.0-34.0) pg MCHC (33.0-35.0) g/dL Plt Count (150-450) 10^3/uL Neut % (Auto) (42.2-75.2) % Lymph % (Auto) (20.5-50.1) % [place] % (Auto) (2-8) % Eos % (Auto) (1.0-3.0) % Baso % (Auto) (0.0-1.0) % Sodium 138 (135-145) mmol/L Potassium 3.8 (3.6-5.0) mmol/L Chloride 102 (101-111) mmol/L Carbon Dioxide 26.0 (21.0-31.0) mmol/L Anion Gap 13.8 BUN 13 (7-18) mg/dL Creatinine 0.7 (0.6-1.3) mg/dL Est Cr Clr Drug Dosing 123.63 mL/min Estimated GFR (MDRD) > 60 BUN/Creatinine Ratio 18.57 Glucose 105 (74-105) mg/dL Calcium 9.7 (8.4-10.2) mg/dl Total Bilirubin 0.3 (0.2-1.0) mg/dL AST 20 (10-42) IU/L ALT 23 (10-60) IU/L Alkaline Phosphatase 64 (42-121) IU/L Total Protein 8.1 (6.7-8.2) g/dl Albumin 4.1 (3.2-5.5) g/dl Globulin 4.0 Albumin/Globulin Ratio 1.03 Urine Color (YELLOW) Urine Appearance (CLEAR) Urine pH (5.0-9.0) Ur Specific [place] (1.005-1.030) Urine Protein (NEGATIVE) Urine Glucose (UA) (NEGATIVE) Urine Ketones (NEGATIVE) Urine Occult Blood (NEGATIVE) Urine Nitrite (NEGATIVE) Urine Bilirubin (NEGATIVE) Urine Urobilinogen (0.2-1.0) mg/dL Ur Leukocyte Esterase (NEGATIVE) Urine RBC /HPF Urine WBC (0-5/HPF) /HPF Ur Epithelial Cells (NOT SEEN) /HPF Amorphous Sediment (NOT SEEN) /HPF Urine Bacteria (0-FEW/HPF) /HPF Urine Mucus (NOT SEEN) /LPF Urine HCG, Qual Meds: Medications Discontinued Medications Generic Name Dose Route Start Last Admin Trade Name Freq PRN Reason Stop Dose Admin Ciprofloxacin Confirm 04/13/19 23:15 04/13/19 23:50 Ciprofloxacin Hcl Administered 04/13/19 23:16 Not Given Dose 1,000 mg .ROUTE .STK-MED ONE Ceftriaxone Sodium 1,000 mg/ 100 mls @ 200 mls/hr 04/13/19 23:28 04/13/19 23: 50 Sodium Chloride IV 04/13/19 23:57 200 mls/hr ONETIME ONE Administration Sodium Chloride 1,000 mls @ 999 mls/hr 04/13/19 23:28 04/13/19 23:50 Normal Saline IV 04/14/19 00:28 999 mls/hr .BOLUS ONE Administration Metoclopramide HCl 10 mg 04/13/19 23:28 04/13/19 23:50 Reglan IVPUSH 04/13/19 23:29 10 mg ONETIME ONE Administration Ondansetron HCl Confirm 04/14/19 01:04 04/14/19 01:34 Zofran Odt Administered 04/14/19 01:05 Not Given Dose 32 mg .ROUTE .STK-MED ONE Phenazopyridine HCl Confirm 04/13/19 23:15 04/13/19 23:50 Urinary Pain Relief Administered 04/13/19 23:16 Not Given Dose 95 mg .ROUTE .STK-MED ONE Phenazopyridine HCl Confirm 04/13/19 23:15 04/13/19 23:51 Urinary Pain Relief Administered 04/13/19 23:16 Not Given Dose 285 mg .ROUTE .STK-MED ONE - Re-Assessments/Exams Free Text/Narrative Re-Assessment/Exam: 04/15/19 02:36 Nausea improved. No vomiting. Departure - Departure Time of Disposition: 00:59 Disposition: Home, Self-Care 01 Condition: Good Clinical Impression: Pyelonephritis - Discharge Information *PRESCRIPTION DRUG MONITORING PROGRAM REVIEWED*: No *COPY OF PRESCRIPTION DRUG MONITORING REPORT IN PATIENT ROBERT: No Instructions: Pyelonephritis, Adult, [id number] Referrals: Rocío Chase MD [Primary Care Provider] - Forms: ED Department Discharge Additional Instructions: cipro 500mg one twice daily for 5 days pyridiaum 200mg one every 8 hours as needed for urinary symptoms zofran ODT 4mg one every 6 hours as needed for anusea increase fluids tylenol 650mg every 4 hours as needed for discomfort clinic recheck next week
[2019-04-13] MEDS ORDERED: Sodium Chloride 0.9% 1,000 ML IV ONE (23:28)
[2019-04-13] MEDS ORDERED: Metoclopramide 10 MG/2 ML SDV IVPUSH ONE (23:28)
[2019-04-14 00:31] LABS: ANION GAP 13.8; CHLORIDE,CL 102 mmol/L (101-111); SODIUM,NA 138 mmol/L (135-145)
[2019-04-14] MEDS ORDERED: Ondansetron 4 MG Tab.DIS ONE (01:04)
== END 2019-04-14 01:18 | disposition home or self-care (01) ==
LOC: DL.ED 21:23
DX: N12 Tubulo-interstitial nephritis, not specified as acute or chronic (principal); F32.9 Major depressive disorder, single episode, unspecified; F41.9 Anxiety disorder, unspecified; Z88.2 Allergy status to sulfonamides; Z79.899 Other long term (current) drug therapy
CPT/HCPCS: 36415; 80053; 81001; 81025; 85025; 87086; 87088; 87186; 96361; 96365; 96375; 99284; A9270; J0696; J2765; J7030; J7050

== ENCOUNTER 2020-05-01 13:58 | Emergency (ER) | payer BC ==
[2020-05-01] MEDS ORDERED: Ondansetron 4 MG Tab.DIS PO ONE (13:59)
[2020-05-01 14:10] VITALS: BP 115/67; PULSE 128
[2020-05-01] MEDS ORDERED: Sodium Chloride 0.9% 1,000 ML IV ONE (14:16)
[2020-05-01] MEDS ORDERED: Ondansetron 4 MG/2 ML SDV IVPUSH ONE (14:16)
--- NOTE | 2020-05-01 14:16 | EDM.PDOC ---
ED HPI GENERAL MEDICAL PROBLEM - General Chief Complaint: Flank Pain Stated Complaint: UTI PAIN KIDNEY PAIN INTERMITTENT FEVER Time Seen by Provider: 05/01/20 14:10 Source of Information: Reports: Patient, RN, RN Notes Reviewed History Limitations: Reports: No Limitations - History of Present Illness INITIAL COMMENTS - FREE TEXT/NARRATIVE: Patient presents to the ED via personal vehicle with complaints of bilateral flank pain with suprapubic tenderness; the patient verbalizes she is concerned she has a UTI. She reports she woke at about 0300 this morning with nausea and vomiting, following which she noticed she had pain in her flanks and her midline lower abdomen. This pain has since migrated to span her RLQ and LLQ. She states she has experienced roughly 10 bouts of emesis and 3 bouts of diarrhea since 0300. Additionally, she states her temperature late this morning was 102; she did not taken any medications for this fever. She denies shaking chills, dyspepsia, hematemesis, dysuria, hematuria, melena, or hematochezia. The patient states she took one dose of Pyridium and "some cranberry pills." She does attest to drinking alcohol, with her last drink occurring last night. She denies tobacco or recreational drug use. The patient states she is sexually active with one partner for the past year; they do not consistently use a barrier method during intercourse. She denies vaginal discharge, vaginal odor, or pain with intercourse. Bilateral Flank Pain Score (Numeric/FACES): 7 - Related Data Allergies Allergy/AdvReac Type Severity Reaction Status Date / Time Sulfa (Sulfonamide Allergy Rash Verified 05/01/20 14:07 Antibiotics) Home Meds: Home Meds Dextroamphetamine/Amphetamine [Adderall] 30 mg PO DAILY 08/02/17 [History] Levonorgestrel/Ethin.estradiol [Falmina-28 Tablet] 1 tab PO DAILY 04/02/18 [History] Sertraline [Zoloft] 100 mg PO DAILY 04/24/18 [History] Acetaminophen [Tylenol] 650 mg PO Q6H PRN 30 Days #30 tablet 04/25/18 [Rx] Past Medical History - Past Health History Medical/Surgical History: Denies Medical/Surgical History HEENT History: Reports: None Cardiovascular History: Reports: None Respiratory History: Reports: None Gastrointestinal History: Reports: Chronic Constipation Genitourinary History: Reports: Pyelonephritis, UTI, Recurrent Other Genitourinary History: renal reflux Musculoskeletal History: Reports: Back Pain, Chronic Neurological History: Reports: None Psychiatric History: Reports: ADHD, Anxiety, Depression Endocrine/Metabolic History: Reports: None Hematologic History: Reports: None Immunologic History: Reports: None Oncologic (Cancer) History: Reports: None Dermatologic History: Reports: None - Infectious Disease History Infectious Disease History: Reports: Influenza Social & Family History - Family History Family Medical History: No Pertinent Family History - Caffeine Use Caffeine Use: Reports: Soda ED ROS GENERAL - Review of Systems Review Of Systems: Comprehensive ROS is negative, except as noted in HPI. ED EXAM, RENAL/ - Physical Exam Exam: See Below Exam Limited By: No Limitations General Appearance: Alert, WD/WN, No Apparent Distress Throat/Mouth: Normal Inspection, Normal Voice, No Airway Compromise Head: Atraumatic, Normocephalic Neck: Normal Inspection, Supple, Non-Tender, Full Range of Motion Respiratory/Chest: No Respiratory Distress, Lungs Clear, Normal Breath Sounds, No Accessory Muscle Use, Chest Non-Tender Cardiovascular: Normal Peripheral Pulses, No Edema, No Gallop, No JVD, No Murmur, No Rub, Tachycardia GI/Abdominal: Soft, No Distention, No Mass, Pelvis Stable, Tender (To RLQ, LLQ, and suprapubic area), Abnormal Bowel Sounds (Hyperactive x4). No: Guarding, Rigid, Rebound (Female) Exam: No: Adnexal Mass, Adnexal Tenderness, Cervix Motion Tenderness, Uterine Tenderness, Vaginal Bleeding, Vaginal Discharge Rectal (Female) Exam: Deferred Back Exam: Full Range of Motion, CVA Tenderness (R). No: CVA Tenderness (L) Neurological: Alert, Oriented, CN II-XII Intact, Normal Cognition, Normal Gait, No Motor/Sensory Deficits Psychiatric: Normal Affect, Normal Mood Skin Exam: Warm, Dry, Intact, Normal Color, No Rash. No: Ecchymosis, Erythema, Mottled, Pallor, Petechiae Course - Vital Signs Last Recorded V/S: Last Vital Signs Temp 98.4 F 05/01/20 14:09 Pulse 128 H 05/01/20 14:09 Resp 16 05/01/20 14:09 BP 115/67 05/01/20 14:09 Pulse Ox 98 05/01/20 14:09 - Orders/Labs/Meds Orders: Active Orders 24 hr Category Date Time Status CULTURE URINE [RM] Stat Lab 05/01/20 14:06 Received Labs: Laboratory Tests 05/01/20 05/01/20 05/01/20 Range/Units 14:06 14:06 14:18 WBC 9.3 (5.0-10.0) 10^3/uL RBC 4.36 (4.2-5.4) 10^6/uL Hgb 13.7 (12.0-16.0) g/dL Hct 40.1 (37.0-47.0) % MCV 92.0 (80-100) fL MCH 31.4 (27.0-34.0) pg MCHC 34.2 (33.0-35.0) g/dL Plt Count 249 D (150-450) 10^3/uL Neut % (Auto) 86.4 H (42.2-75.2) % Lymph % (Auto) 7.1 L (20.5-50.1) % [place] % (Auto) 6.2 (2-8) % Eos % (Auto) 0.3 L (1.0-3.0) % Baso % (Auto) 0.0 (0.0-1.0) % Sodium (136-145) mmol/L Potassium (3.5-5.1) mmol/L Chloride (98-107) mmol/L Carbon Dioxide (21-32) mmol/L Anion Gap (7-13) mEq/L BUN (7-18) mg/dL Creatinine (0.55-1.02) mg/dL Est Cr Clr Drug Dosing mL/min Estimated GFR (MDRD) BUN/Creatinine Ratio (No establ ref range) Glucose (74-99) mg/dL Calcium (8.5-10.1) mg/dL Total Bilirubin (0.2-1.0) mg/dL AST (15-37) U/L ALT (14-59) U/L Alkaline Phosphatase (46-116) U/L Total Protein (6.4-8.2) g/dL Albumin (3.4-5.0) g/dL Globulin Albumin/Globulin Ratio Urine Color [place] (YELLOW) Urine Appearance Clear (CLEAR) Urine pH 6.0 (5.0-9.0) Ur Specific [place] 1.025 (1.005-1.030) Urine Protein 30 H (NEGATIVE) Urine Glucose (UA) 100 H (NEGATIVE) Urine Ketones Negative (NEGATIVE) Urine Occult Blood Negative (NEGATIVE) Urine Nitrite Positive H (NEGATIVE) Urine Bilirubin Negative (NEGATIVE) Urine Urobilinogen 1.0 (0.2-1.0) mg/dL Ur Leukocyte Esterase Negative (NEGATIVE) Urine RBC 0-5 /HPF Urine WBC 0-5 (0-5/HPF) /HPF Ur Epithelial Cells Few (NOT SEEN) /HPF Urine Bacteria Few (0-FEW/HPF) /HPF Urine Mucus Few H (NOT SEEN) /LPF Urine HCG, Qual Negative 05/01/20 Range/Units 14:18 WBC (5.0-10.0) 10^3/uL RBC (4.2-5.4) 10^6/uL Hgb (12.0-16.0) g/dL Hct (37.0-47.0) % MCV (80-100) fL MCH (27.0-34.0) pg MCHC (33.0-35.0) g/dL Plt Count (150-450) 10^3/uL Neut % (Auto) (42.2-75.2) % Lymph % (Auto) (20.5-50.1) % [place] % (Auto) (2-8) % Eos % (Auto) (1.0-3.0) % Baso % (Auto) (0.0-1.0) % Sodium 136 (136-145) mmol/L Potassium 3.8 (3.5-5.1) mmol/L Chloride 98 (98-107) mmol/L Carbon Dioxide 26 (21-32) mmol/L Anion Gap 15.8 H (7-13) mEq/L BUN 16 (7-18) mg/dL Creatinine 0.93 (0.55-1.02) mg/dL Est Cr Clr Drug Dosing 88.83 mL/min Estimated GFR (MDRD) > 60 BUN/Creatinine Ratio 17.2 (No establ ref range) Glucose 103 H (74-99) mg/dL Calcium 8.9 (8.5-10.1) mg/dL Total Bilirubin 0.6 (0.2-1.0) mg/dL AST 21 (15-37) U/L ALT 41 (14-59) U/L Alkaline Phosphatase 65 (46-116) U/L Total Protein 7.7 (6.4-8.2) g/dL Albumin 3.9 (3.4-5.0) g/dL Globulin 3.8 Albumin/Globulin Ratio 1.0 Urine Color (YELLOW) Urine Appearance (CLEAR) Urine pH (5.0-9.0) Ur Specific [place] (1.005-1.030) Urine Protein (NEGATIVE) Urine Glucose (UA) (NEGATIVE) Urine Ketones (NEGATIVE) Urine Occult Blood (NEGATIVE) Urine Nitrite (NEGATIVE) Urine Bilirubin (NEGATIVE) Urine Urobilinogen (0.2-1.0) mg/dL Ur Leukocyte Esterase (NEGATIVE) Urine RBC /HPF Urine WBC (0-5/HPF) /HPF Ur Epithelial Cells (NOT SEEN) /HPF Urine Bacteria (0-FEW/HPF) /HPF Urine Mucus (NOT SEEN) /LPF Urine HCG, Qual Meds: Medications Discontinued Medications Generic Name Dose Route Start Last Admin Trade Name Nikq PRN Reason Stop Dose Admin Sodium Chloride 1,000 mls @ 999 mls/hr 05/01/20 14:16 05/01/20 14:22 Normal Saline IV 05/01/20 15:16 999 mls/hr .BOLUS ONE Administration Ondansetron HCl 4 mg 05/01/20 14:16 05/01/20 14:22 Zofran IVPUSH 05/01/20 14:17 4 mg ONETIME ONE Administration - Radiology Interpretation Free Text/Narrative:: [facility] Final Radiology Report Call: [phone] assistance Online chat: [email or web address] Name: PAULA PETERS Age: 24Years F Date: 05/01/2020 SSN: -- : 1995 Study: CT ABDOMEN PELVIS WO CONT Requesting Physician: Elke Kirby Images: [id number] Addl Studies: Provided Clinical History: New onset flank pain; Fever Contrast: Without Contrast Medium: Contrast Amount: Contrast Method: Page 1 of 2 PROCEDURE INFORMATION: Exam: CT Abdomen And Pelvis Without Contrast Exam date and time: 05/01/2020 2:58 PM Age: 24 years old Clinical indication: Abdominal pain; Other: Flank; Additional info: New onset flank pain; Fever TECHNIQUE: Imaging protocol: Computed tomography of the abdomen and pelvis without contrast. Radiation optimization: All CT scans at this facility use at least one of these dose optimization techniques: automated exposure control; mA and/or kV adjustment per patient size (includes targeted exams where dose is matched to clinical indication); or iterative reconstruction. COMPARISON: CT Abdomen Pelvis wo Cont 12/16/2018 2:49 AM FINDINGS: Liver: Marked diffuse fatty infiltration of the liver, progressed since 0 12/16/2018. Gallbladder and bile ducts: Normal. No calcified stones. No ductal dilation. Pancreas: Normal. No ductal dilation. Spleen: Normal. No splenomegaly. Adrenal glands: Normal. No mass. Kidneys and ureters: Normal. No hydronephrosis. Stomach and bowel: Fluid-filled loops of mildly distended small bowel. Evaluation of bowel wall thickening is limited without IV contrast. Appendix: No evidence of appendicitis. Intraperitoneal space: Tiny amount of free fluid in the pelvis. Vasculature: Retroaortic left renal vein, normal variant. Lymph nodes: Prominent mesenteric lymph nodes. Largest measures approximately a cm in long axis. These are stable when compared with 12/16/2018 Urinary bladder: Unremarkable as visualized. PAULA PETERS | Final Radiology Report CONFIDENTIALITY STATEMENT This report is intended only for use by the referring physician, and only in accordance with law. If you received this in error, call [phone]. Page 2 of 2 Reproductive: Unremarkable as visualized. Bones/joints: Unremarkable. No acute fracture. Soft tissues: Unremarkable. IMPRESSION: 1. Mildly distended fluid-filled loops of small bowel could be due to mild enteritis. 2. Stable prominent mesenteric lymph nodes since 12/16/2018. 3. Progression of marked fatty infiltration of the liver. Thank you for allowing us to participate in the care of your patient. Dictated and Authenticated by: Ibis Saavedra MD 05/01/2020 3:16 PM Central Time ([place] & [place]) - Re-Assessments/Exams Free Text/Narrative Re-Assessment/Exam: 05/01/20 Confirmed altered UA d/t patient taking Pyridium, + Nitrites w/o bacteria present likely not accurate; will reflex to culture to confirm. Patient instructed to follow up with PCP or present to the ED with dysuria, hematuria, inability to fully void, or fever that does not reduce with antipyretics. Patient states she would like to forgo STI testing at this time, but discussed possibility of PID. No CMT noted on exam. Will treat for viral enteritis. Departure - Departure Time of Disposition: 15:35 Disposition: Home, Self-Care 01 Clinical Impression: Enteritis - Discharge Information *PRESCRIPTION DRUG MONITORING PROGRAM REVIEWED*: Not Applicable *COPY OF PRESCRIPTION DRUG MONITORING REPORT IN PATIENT ROBERT: Not Applicable Forms: ED Department Discharge Additional Instructions: Rx: Zofran Drink plenty of fluids to stay hydrated. Eat small, frequent meals until nausea and vomiting have stopped. You may take acetaminophen (Tylenol) 650mg every six hours for pain/fever. You make take ibuprofen (Advil/Motrin) 400mg every six hours for pain/fever. You may stagger these medications so you are taking a dose every three hours. Follow up with your primary care provider early next week, or should you develop fever that does not come down with medications, shaking chills, worsening pain, pain with urination, or bleeding with urination. Sepsis Event Note (ED) - Focused Exam Vital Signs: Vital Signs Temp Pulse Resp BP Pulse Ox 05/01/20 14:09 98.4 F 128 H 16 115/67 98 - My Orders Last 24 Hours: My Active Orders 05/01/20 14:06 CULTURE URINE [RM] Stat - Assessment/Plan Last 24 Hours: My Active Orders 05/01/20 14:06 CULTURE URINE [RM] Stat
[2020-05-01 14:43] LABS: ANION GAP 15.8 mEq/L (7-13); CHLORIDE,CL 98 mmol/L (98-107); SODIUM,NA 136 mmol/L (136-145)
--- NOTE | 2020-05-01 15:16 | CT ---
PROCEDURE INFORMATION: Exam: CT Abdomen And Pelvis Without Contrast Exam date and time: 05/01/2020 2:58 PM Age: 24 years old Clinical indication: Abdominal pain; Other: Flank; Additional info: New onset flank pain; Fever TECHNIQUE: Imaging protocol: Computed tomography of the abdomen and pelvis without contrast. Radiation optimization: All CT scans at this facility use at least one of these dose optimization techniques: automated exposure control; mA and/or kV adjustment per patient size (includes targeted exams where dose is matched to clinical indication); or iterative reconstruction. COMPARISON: CT Abdomen Pelvis wo Cont 12/16/2018 2:49 AM FINDINGS: Liver: Marked diffuse fatty infiltration of the liver, progressed since 12/16/2018. Gallbladder and bile ducts: Normal. No calcified stones. No ductal dilation. Pancreas: Normal. No ductal dilation. Spleen: Normal. No splenomegaly. Adrenal glands: Normal. No mass. Kidneys and ureters: Normal. No hydronephrosis. Stomach and bowel: Fluid-filled loops of mildly distended small bowel. Evaluation of bowel wall thickening is limited without IV contrast. Appendix: No evidence of appendicitis. Intraperitoneal space: Tiny amount of free fluid in the pelvis. Vasculature: Retroaortic left renal vein, normal variant. Lymph nodes: Prominent mesenteric lymph nodes. Largest measures approximately a cm in long axis. These are stable when compared with 12/16/2018 Urinary bladder: Unremarkable as visualized. Reproductive: Unremarkable as visualized. Bones/joints: Unremarkable. No acute fracture. Soft tissues: Unremarkable. IMPRESSION: 1. Mildly distended fluid-filled loops of small bowel could be due to mild enteritis. 2. Stable prominent mesenteric lymph nodes since 12/16/2018. 3. Progression of marked fatty infiltration of the liver.
[2020-05-01] MEDS ORDERED: Ondansetron 4 MG Tab.DIS ONE (15:44)
== END 2020-05-01 15:49 | disposition home or self-care (01) ==
LOC: DL.ED 13:58
DX: K52.9 Noninfective gastroenteritis and colitis, unspecified (principal); F90.9 Attention-deficit hyperactivity disorder, unspecified type; F41.9 Anxiety disorder, unspecified; F32.9 Major depressive disorder, single episode, unspecified; Z79.899 Other long term (current) drug therapy; Z88.2 Allergy status to sulfonamides
CPT/HCPCS: 36415; 74176; 80053; 81001; 81025; 85025; 87086; 87088; 87186; 96374; 99284; A9270; J2405; J7030

== ENCOUNTER 2020-05-27 23:58 | Emergency (ER) | payer BC ==
[2020-05-28 00:03] VITALS: BP 132/110; PULSE 122
[2020-05-28 00:48] LABS: ANION GAP 16.6 mEq/L (7-13); CHLORIDE,CL 102 mmol/L (98-107); SODIUM,NA 136 mmol/L (136-145)
[2020-05-28 00:54] LABS: ACETAMINOPHEN 0 ug/mL (10-30 (Therapeutic))
== END 2020-05-28 00:25 | disposition home or self-care (01) ==
LOC: DL.ED 23:58
DX: F10.129 Alcohol abuse with intoxication, unspecified (principal); Y90.7 Blood alcohol level of 200-239 mg/100 ml
CPT/HCPCS: 36415; 80053; 80305-QW; 80307; 81025; 85025; 99284

== ENCOUNTER 2022-06-06 19:12 | Emergency (ER) | payer BC ==
[2022-06-06] MEDS ORDERED: Ciprofloxacin 500 MG Tab PO ONE ×2 (19:13→21:12)
[2022-06-06] MEDS ORDERED: Sodium Chloride 0.9% 10 ML Syringe FLUSH PRN (20:27)
[2022-06-06 20:37] VITALS: BP 123/83; PULSE 79
[2022-06-06 21:06] LABS: ANION GAP 9.1 mEq/L (7-13)
[2022-06-06] MEDS ORDERED: Sodium Chloride 0.9% 1,000 ML IV ONE (21:12)
[2022-06-06] MEDS ORDERED: Ciprofloxacin 500 MG Tab ONE (22:17)
== END 2022-06-06 22:36 | disposition home or self-care (01) ==
LOC: DL.ED 19:12
DX: N39.0 Urinary tract infection, site not specified (principal); R31.9 Hematuria, unspecified; N17.9 Acute kidney failure, unspecified; Z88.2 Allergy status to sulfonamides
CPT/HCPCS: 36415; 80053; 81001; 85025; 87086; 87088; 87186; 96360; 99284; A9270; J3490; J7030